=== PATIENT | female | born 1970 | race Caucasian/White ===

== ENCOUNTER 2018-11-14 16:26 | Emergency (ER) | payer BC, OTHER ==
[~2018-11-14] VITALS: Ht 162.6 cm; Wt 177.0 kg
[~2018-11-14 16:26] MED LIST: VICO5TAB OR
--- NOTE | 2018-11-14 18:39 | REPVR ---
EXAM: US Right Duplex Lower Extremity Veins, Limited EXAM DATE/TIME: 11/14/2018 6:25 PM CLINICAL HISTORY: 48 years old, female; Pain; Leg, upper; Right; Additional info: Right leg pain, HX of superficial clots TECHNIQUE: Real-time Duplex ultrasound of the Right Lower Extremity with 2-D chavarria scale, color Doppler flow and spectral waveform analysis. Limited exam was focused on the right lower extremity veins. COMPARISON: No relevant prior studies available. FINDINGS: Right deep veins: Unremarkable. The common femoral, femoral and popliteal veins are patent without thrombus. Normal compressibility, augmentation response and Doppler waveforms. Right superficial veins: Unremarkable. Saphenofemoral junction is patent without thrombus. Soft tissues: Unremarkable. IMPRESSION: No sonographic evidence of deep vein thrombosis. Electronically signed by: Seamus Kang On 11/14/2018 18:38:47 PM
[2018-11-14 18:44] VITALS: BP 177/88
== END 2018-11-14 18:56 | disposition home or self-care (01) ==
LOC: M ED 16:26
DX: M79.604 Pain in right leg (principal); W18.39XA Other fall on same level, initial encounter; Y92.89 Other specified places as the place of occurrence of the external cause; F33.9 Major depressive disorder, recurrent, unspecified; E66.8 Other obesity

== ENCOUNTER → 2020-01-10 | Outpatient (REF) | payer BC, OTHER | LOC: M LAB REF 14:48 | PROVIDERS: ATTEND Radiology Diagnostic Radiology | DX: C50.911 Malignant neoplasm of unspecified site of right female breast (principal) ==

== ENCOUNTER → 2020-08-02 | Outpatient (CLI) | payer BC ==
[~2020-08-02] MED LIST changes: +ASPI81CH33 PO; +ASPI81TA21 PO; +CORE12.5 PO; +LUPR22.5 IM; +METO1TAB32 PO; +ONDA8TAB10 PO; +PROC10TA4 PO; +SPIR-10 PO
--- NOTE | 2020-08-02 14:42 | RADONC ---
Radiation Oncology Hx/FUP Radiation Oncology Consult Date of Service: Aug 02, 2020 Pt Identifier Park Jaramillo is a 50 year old female with BRCA1 mutation, seen for a followup visit today at the department of radiation oncology for a history of pT2N0(sn)M0 ER/ID+ HER2- Gr 3 right breast cancer s/p lumpectomy on 01/30/20 and adjuvant chemotherapy due to an oncotype score of 37. She was previously treated for left breast cancer stage IIIB T3N2M0 triple negative for which she underwent mastectomy, chemotherapy and PMRT 50.4 Gy to the chest wall and an additional 10 Gy scar boost completed 03/26/12. Diagnosis/Treatment History Oncologic History Per Dr. Warren's note: Left mastectomy, ALND 2010. TAC (docetaxel/doxorubicin/cyclophosphamide) six cycles August 2011 - January 2012. Tamoxifen 5 years completed 2016. Post mastectomy radiation March 2012. Self detected right breast mass May 2019 brought to medical attention December 2019 biopsy with high-grade IDC, ER 90%/ID 70%, HER2/shantell negative. Right lumpectomy/sentinel node biopsy 01/30/2020. Final pathology T2 (3.3 cm tumor) N0 (0/2) pT2pN0(sn) M0, ER 90%/ID 70%/OGZ3ebg negative grade 3 pathologic stage IB. Oncotype DX 37 recurrent score moderate. 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 Dose dense paclitaxel four cycles 02/03/2020 - 04/11/2020. Followed by cyclophosphamide X4 cycles to be completed 06/28/2020. Started leuprolide injections 03/01/2020. For SERGIO/BSO under Dr. Eller after radiation. Then AI. Interval History Feels well generally. Chemo induced fatigue and nausea have resolved. Has no pain in the right breast. Feels she would be able to lay prone for treatment. Current Therapy Radiation pending Stage Stage IB right breast cancer pT2N0(sn)M0 ER/ID+ HER2- Grade 3 Social History: Patient is a never smoker. Drinks alcohol rarely. Works at [employer] for 25 years. She is , lives with her and has two kids at home Allergies / Meds Allergies: Coded Allergies: No Known Allergies (Unverified , 02/03/19) Home Meds Active Scripts Prochlorperazine Maleate (Prochlorperazine Maleate) 10 Mg Tablet, 10 MG PO Q8HP PRN for NAUSEA OR VOMITING, #30 TAB 3 Refills Prov:Paulette Aguirre. 02/27/20 Ondansetron HCl (Ondansetron HCl) 8 Mg Tablet, 8 MG PO Q6HP PRN for NAUSEA OR VOMITING, #30 TAB 3 Refills Prov:Paulette Aguirre F. 02/27/20 Reported Medications Aspirin (Aspirin) 81 Mg Tab.chew, 1 TAB PO DAILY for pain for 30 Days, #30 TAB 03/14/20 Spironolactone (Spironolactone) 25 Mg Tablet, 12.5 MG PO DAILY for 30 Days, #30 TAB 02/23/20 Carvedilol (Coreg) 12.5 Mg Tablet, 12.5 MG PO BID, TAB 02/23/20 Review of Systems Review of Systems Constitutional: Denies: ROS Unabtainable, Chills, Fever, Malaise, Night Sweats, Weakness, Fatigue, Weight Loss, Lethargy, Normal appetite, Other symptoms Eyes: Denies: Pain, Vision change, Conjunctivae inflammation, Eyelid inflammation, Redness, Other HEENT: Denies: Head Aches, Ear Pain, Dysphagia, Sinus Congestion, Post Nasal Drip, Sore Throat, Epistaxis, Other Symptoms Skin: Denies: Rash, Lesions, Jaundice, Bruising, Other Breast: Denies: New Breast Lumps / Masses, Nipple Retraction, Nipple Discharge, Breast Skin Changes, Breast Pain or Tenderness, Other Breast Complaints Pulmonary: Denies: Dyspnea, Cough, Pleuritic Chest Pain, Other Symptoms Cardiovascular: Denies: Chest Pain, Palpitations, Orthopnea, Paroxysmal Noc. Dyspnea, Edema, Lt Headedness, Other Symptoms Gastrointestinal: Denies: Nausea, Vomiting, Abdominal Pain, Diarrhea, Constipation, Melena, Hematochezia, Other Symptoms Genitourinary: Denies: Dysuria, Frequency, Incontinence, Hematuria, Retention, Other Symptoms Hematologic: Denies: Bruising, Bleeding Excessively, Petecchia, Purpura, Enlarged Lymph Nodes, Other Hematologic Endocrine: Denies: Polydipsia, Polyphagia, Polyuria, Heat Intolerance, Cold Intolerance, Other Endocrine Sx Musculoskeletal: Denies: Neck pain, Shoulder pain, Arm pain, Back pain, Hand pain, Leg pain, Foot pain, Joint pain, Muscle pain, Spasms, Gout, Joint sweling, Muscle stiffness, Midthoracic pain, Other Neurological: Denies: Weakness, Numbness, Incoordination, Change in Speech, Confusion, Seizures, Other Symptoms Psych: Denies: Mood Normal, Anxiety, Depression, Memory Issues, Thoughts of Self Harm, Anger, Thoughts of harming Other, Other Psych Physical Examination Vital Signs Ht 64" Wt 350 BMI 60 General Exam: Positive: Alert, Cooperative; Negative: No Acute Distress Eye Exam: Positive: PERRLA, EOMI Neck Exam: Positive: Supple; Negative: Lymphadenopathy Chest Exam: Positive: Clear to auscultation Heart Exam: Positive: Rate Normal Breast Exam: Positive: Skin Changes, Other Breast Findings (On left chest wall there is palpable radiation fibrosis, hyperpigmentation and dense telangiectasias. ); Negative: Symmetric Bilaterally, Lumps or Masses (Right breast is ptotic quite pendulous, there are no palpable masses), Nipple Discharge Abdomen Exam: Positive: Normal bowel sounds; Negative: Tenderness Extremity Exam: Positive: Edema Skin Exam: Positive: Nl turgor and temperature Neuro Exam: Positive: Normal Gait, Normal Speech, Cranial Nerves 3-12 NL Psych Exam: Positive: Mental status NL, Mood NL, Memory Intact, Oriented x 3 Diagnostic and Laboratory Diagnostic Review Radiologic images, relevant labs and pathology reports were personally reviewed and discussed with Ms. Jaramillo. Assessment and Plan Impression Assessment Ms. Jaramillo is a 50 year old female with BRCA1 mutation, seen for a followup visit today at the department of radiation oncology for a history of pT2N0(sn)M0 ER/ID+ HER2- Gr 3 right breast cancer s/p lumpectomy on 01/30/20 and adjuvant chemotherapy due to an oncotype score of 37. She was previously treated for left breast cancer stage IIIB T3N2M0 triple negative for which she underwent mastectomy, chemotherapy and PMRT 50.4 Gy to the chest wall and an additional 10 Gy scar boost completed 03/26/12. She has completed and recovered from chemotherapy. She has a pending BSO with Dr. Eller to take place after radiation is complete. She has notable severe skin sequelae from prior RT on the left, reported she had non-healing ulceration for months after treatment, now has dense fibrosis and overlying skin changes. I think this is due to the technique employed when she was treated in 2011, and I assured her that with current technique that she will not have the same acute and late skin toxicities. Her right breast is quite pendulous and I think she would benefit from prone b reast radiation, this will limit dose to underlying lung. If she were unable to tolerate this I would treat her supine, however we would definitely not be able to meet acceptable homogeneity or lung dose criteria as the separation will be quite large. I recommend 40 Gy in 15 fractions to the whole breast followed by a 10 Gy in 5 fraction tumor bed boost. She is aware of the possible side effects, fatigue skin reaction and fibrosis. She agrees with the plan and wishes to proceed. The simulation will occur next week. Performance Status ECOG 0 Plan 40 Gy in 15 fractions WBI with 10 Gy in 5 fraction boost Will attempt prone treatment Simulation next week Ms. Jaramillo was encouraged to call with questions or concerns in the interim period. JEREMY SHOEMAKER MD Aug 02, 2020 14:42
== END ==
LOC: M ONCR 13:00
PROVIDERS: ATTEND General Practice
DX: C50.811 Malignant neoplasm of overlapping sites of right female breast (principal)

== ENCOUNTER 2020-08-31 14:45 | Outpatient (RCR) | payer BC ==
[~2020-08-31 14:45] MED LIST changes: -LUPR22.5 IM
[2020-09-06] MEDS ORDERED: LUPR22.5 IM (09:48)
== END 2020-09-01 ==
LOC: M ONCR 14:45
PROVIDERS: ATTEND General Practice
DX: C50.811 Malignant neoplasm of overlapping sites of right female breast (principal)

== ENCOUNTER 2020-09-12 14:56 | Outpatient (RCR) | payer BC ==
[~2020-09-12 14:56] MED LIST changes: +LUPR22.5 IM
== END 2020-10-01 ==
LOC: M ONCR 14:56
PROVIDERS: ATTEND General Practice
DX: C50.811 Malignant neoplasm of overlapping sites of right female breast (principal)

== ENCOUNTER → 2025-03-01 | Outpatient (CLI) | payer OTHER ==
[~2025-03-01] MED LIST changes: +ISOVUE-370 76% 100ML VIAL As Ordered ONE; +ONDA-84 PO; -ONDA8TAB10 PO; -PROC10TA4 PO; +PROC10TA5 PO; +TAMO20TA8 PO
== END ==
LOC: M RAD 06:32
PROVIDERS: ATTEND Internal Medicine Medical Oncology
DX: C50.919 Malignant neoplasm of unspecified site of unspecified female breast (principal); D35.02 Benign neoplasm of left adrenal gland
CPT/HCPCS: 71260; 74177; Q9967